=== PATIENT | female | born 1965 | race Caucasian/White ===

== ENCOUNTER 2021-10-20 10:38 | Inpatient (IN) | payer SELFPAY ==
[2021-10-20] MEDS ORDERED: ACETAMINOPHEN 325 MG TABLET PO PRN (11:00)
[2021-10-20] MEDS ORDERED: OLANZAPINE 5 MG TABLET PO ONE (12:30)
== END 2021-10-20 14:43 | disposition still patient (30) | DRG 951 ==
LOC: MEDOV2 10:38
PROVIDERS: ADMIT Psychiatry & Neurology Psychiatry; ATTEND Psychiatry & Neurology Psychiatry
DX: Z00.00 Encounter for general adult medical examination without abnormal findings (principal)
CPT/HCPCS: G0378